=== PATIENT | female | born 1990 | race Caucasian/White ===

== ENCOUNTER 2016-10-11 14:43 | Outpatient (CLI) | payer MEDICAID ==
[2016-10-11 15:16] LABS: APPEARANCE,URINE CLEAR; BILIRUBIN,URINE NEGATIVE (NEGATIVE); GLUCOSE, URINE NEGATIVE (NEGATIVE); KETONES,URINE NEGATIVE (NEGATIVE); LEUKOCYTE ESTERASE,URINE TRACE (NEGATIVE); NITRITE,URINE NEGATIVE (NEGATIVE); PROTEIN,URINE NEGATIVE (NEGATIVE); URINE SPECIFIC GRAVITY 1.001; UROBILINOGEN,URINE NEGATIVE mg/dL (<2.0)
[2016-10-11 15:19] LABS: ABSOLUTE BASOPHILS # (AUTO) 0.1 10^3/uL (0.0-0.2); ABSOLUTE EOSINOPHILS # (AUTO) 0.1 10^3/uL (0.0-0.6); ABSOLUTE MONOCYTES (AUTO) 0.9 10^3/uL (0.1-1.4); ABSOLUTE NEUT (AUTO) 9.6 10^3/uL (1.7-8.2); BASOPHILS % (AUTO) 0.4 % (0-2); EOSINOPHILS % (AUTO) 0.8 % (0-6); HEMATOCRIT 37.2 % (36.0-47.0); HEMOGLOBIN 12.8 g/dL (12.0-15.5); HGB HCT DIFFERENCE 1.2; LYMPHOCYTES % (AUTO) 15.5 % (13-45); MEAN CORPUSCULAR HEMOGLOBIN 31.3 pg (27.0-33.4); MEAN CORPUSCULAR HGB CONC 34.3 g/dL (32.0-36.0); MEAN CORPUSCULAR VOLUME 91 fl (80-97); MONOCYTES % (AUTO) 7.2 % (3-13); RED BLOOD COUNT 4.08 10^6/uL (3.72-5.28); RED CELL DISTRIBUTION WIDTH 12.1 % (11.5-14.0); SEGMENTED NEUTROPHILS % (AUTO) 76.1 % (42-78); WHITE BLOOD COUNT 12.6 10^3/uL (4.0-10.5)
[2016-10-11 15:33] LABS: ALANINE AMINOTRANSFERASE 22 U/L (9-52); ALBUMIN 3.6 g/dL (3.5-5.0); ALKALINE PHOSPHATASE 140 U/L (38-126); ANION GAP 8 (5-19); ASPARTATE AMINO TRANSFERASE 21 U/L (14-36); BILIRUBIN,DIRECT 0.3 mg/dL (0.0-0.4); BILIRUBIN,TOTAL 0.4 mg/dL (0.2-1.3); BLOOD UREA NITROGEN 7 mg/dL (7-20); CARBON DIOXIDE 20 mmol/L (22-30); CHLORIDE 105 mmol/L (98-107); CREATININE RESULT 0.58 mg/dL (0.52-1.25); GLUCOSE 86 mg/dL (75-110); LDH 353 U/L (313-618); POTASSIUM 4.2 mmol/L (3.6-5.0); SODIUM 133.2 mmol/L (137-145); TOTAL PROTEIN 6.7 g/dL (6.3-8.2); URIC ACID 5.2 mg/dL (2.5-6.2)
[2016-10-11 15:35] LABS: URINE BARBITURATES SCREEN NEGATIVE; URINE METHADONE SCREEN NEGATIVE
[2016-10-11 15:39] LABS: URINE CREATININE 15.6 mg/dL (16-327); URINE PROTEIN 15.4 mg/dL (<12)
[2016-10-11 15:45] LABS: URINE OPIATES LOW NEGATIVE
[2016-10-11 15:46] LABS: URINE PHENCYCLIDINE SCREEN NEGATIVE
== END 2016-10-11 16:16 | disposition home or self-care (01) ==
LOC: LC 14:43
PROVIDERS: ATTEND Specialist
PROC: 4A1HXCZ Monitoring of Products of Conception, Cardiac Rate, External Approach (ICD-10-PCS; principal; 2016-10-11)
DX: O13.3 Gestational [pregnancy-induced] hypertension without significant proteinuria, third trimester (principal); Z3A.29 29 weeks gestation of pregnancy
CPT/HCPCS: 36415; 80053; 80307; 81001; 82570; 83615; 84156; 84550; 85025

== ENCOUNTER 2016-10-13 11:10 | Observation (INO) | payer MEDICAID ==
[2016-10-13] MEDS ORDERED: HYDRALAZINE HCL INJ/PF 20 MG/1 ML SDV ONE (11:54)
[2016-10-13 12:04] LABS: URINE BARBITURATES SCREEN NEGATIVE; URINE METHADONE SCREEN NEGATIVE; URINE OPIATES LOW NEGATIVE; URINE PHENCYCLIDINE SCREEN NEGATIVE
[2016-10-13 12:07] LABS: ABSOLUTE EOSINOPHILS # (AUTO) 0.1 10^3/uL (0.0-0.6); ABSOLUTE LYMPHOCYTES (AUTO) 2.5 10^3/uL (0.5-4.7); ABSOLUTE MONOCYTES (AUTO) 1.1 10^3/uL (0.1-1.4); ABSOLUTE NEUT (AUTO) 7.3 10^3/uL (1.7-8.2); BASOPHILS % (AUTO) 0.2 % (0-2); EOSINOPHILS % (AUTO) 1.2 % (0-6); HEMATOCRIT 34.9 % (36.0-47.0); HEMOGLOBIN 12.1 g/dL (12.0-15.5); HGB HCT DIFFERENCE 1.4; LYMPHOCYTES % (AUTO) 22.6 % (13-45); MEAN CORPUSCULAR HGB CONC 34.6 g/dL (32.0-36.0); MEAN CORPUSCULAR VOLUME 90 fl (80-97); MONOCYTES % (AUTO) 9.6 % (3-13); RED CELL DISTRIBUTION WIDTH 12.4 % (11.5-14.0); SEGMENTED NEUTROPHILS % (AUTO) 66.4 % (42-78); WHITE BLOOD COUNT 11.1 10^3/uL (4.0-10.5)
[2016-10-13 12:08] LABS: URINE CREATININE 24.2 mg/dL (16-327); URINE PROTEIN 14.1 mg/dL (<12)
[2016-10-13 12:20] LABS: APPEARANCE,URINE CLEAR; BILIRUBIN,URINE NEGATIVE (NEGATIVE); GLUCOSE, URINE NEGATIVE (NEGATIVE); KETONES,URINE NEGATIVE (NEGATIVE); URINE SPECIFIC GRAVITY 1.003
[2016-10-13 12:21] LABS: LEUKOCYTE ESTERASE,URINE TRACE (NEGATIVE); NITRITE,URINE NEGATIVE (NEGATIVE); PROTEIN,URINE NEGATIVE (NEGATIVE); UROBILINOGEN,URINE NEGATIVE mg/dL (<2.0)
[2016-10-13 12:26] LABS: ALANINE AMINOTRANSFERASE 23 U/L (9-52); ALBUMIN 3.4 g/dL (3.5-5.0); ALKALINE PHOSPHATASE 117 U/L (38-126); ANION GAP 7 (5-19); ASPARTATE AMINO TRANSFERASE 18 U/L (14-36); BILIRUBIN,DIRECT 0.2 mg/dL (0.0-0.4); BILIRUBIN,TOTAL 0.3 mg/dL (0.2-1.3); BLOOD UREA NITROGEN 8 mg/dL (7-20); CALCIUM 9.1 mg/dL (8.4-10.2); CARBON DIOXIDE 20 mmol/L (22-30); CHLORIDE 108 mmol/L (98-107); CREATININE RESULT 0.62 mg/dL (0.52-1.25); GLUCOSE 75 mg/dL (75-110); LDH 349 U/L (313-618); POTASSIUM 4.2 mmol/L (3.6-5.0); SODIUM 135.4 mmol/L (137-145); TOTAL PROTEIN 6.2 g/dL (6.3-8.2); URIC ACID 5.7 mg/dL (2.5-6.2)
[2016-10-13 12:47] LABS: URINE PROTEIN 14.2 mg/dL (<12)
--- NOTE | 2016-10-13 12:58 | RADIOLOGY REPORT (SQ) ---
EXAM DESCRIPTION: U/S OB LIMITED COMPLETED DATE/TIME: 10/13/2016 12:47 pm REASON FOR STUDY: 30wk, severe pre-e, growth, MELE, presentation COMPARISON: None. TECHNIQUE: Limited transabdominal grayscale ultrasound for evaluation of specific requested obstetri didier parameters. LIMITATIONS: None. FINDINGS: CERVICAL LENGTH: Not seen. MELE: 20.7 cm. FHR: 157 beats per minute. PRESENTATION: Cephalic. OTHER: Estimated body weight 1478 g +/-2 1 9 g.. Live intrauterine gestation of 30 weeks 1 day . Estimated date of delivery at 12/21/2016 IMPRESSION: Live intrauterine gestational 30 weeks 1 day with an estimated date of delivery at at . Findings as described. Trimester of : Third trimester - 28 weeks to delivery. TECHNICAL DOCUMENTATION: JOB ID: [id number] [employer]- All Rights Reserved
[2016-10-13] MEDS ORDERED: BETAMET ACET/BETAMET NA INJ 6 MG/1 ML ONE (13:28)
[2016-10-13 17:54] LABS: AMNISURE (ROM) NEGATIVE (NEGATIVE)
[2016-10-13] MEDS ORDERED: NIFEDIPINE 30 MG TAB.ER.24 PO ONE (20:00)
[2016-10-13] MEDS ORDERED: BETAMET ACET/BETAMET NA INJ 6 MG/1 ML IM ONE (23:45)
[2016-10-13] MEDS ORDERED: ACETAMINOPHEN 325 MG TABLET PO PRN (23:47)
[2016-10-14 06:24] LABS: HEMATOCRIT 36.1 % (36.0-47.0); HEMOGLOBIN 12.4 g/dL (12.0-15.5); HGB HCT DIFFERENCE 1.1; MEAN CORPUSCULAR HGB CONC 34.3 g/dL (32.0-36.0); MEAN CORPUSCULAR VOLUME 90 fl (80-97); RED CELL DISTRIBUTION WIDTH 12.6 % (11.5-14.0); WHITE BLOOD COUNT 13.3 10^3/uL (4.0-10.5)
[2016-10-14 06:38] LABS: ALANINE AMINOTRANSFERASE 20 U/L (9-52); ALBUMIN 3.5 g/dL (3.5-5.0); ALKALINE PHOSPHATASE 119 U/L (38-126); ANION GAP 7 (5-19); ASPARTATE AMINO TRANSFERASE 18 U/L (14-36); BILIRUBIN,DIRECT 0.3 mg/dL (0.0-0.4); BILIRUBIN,TOTAL 0.3 mg/dL (0.2-1.3); BLOOD UREA NITROGEN 13 mg/dL (7-20); CALCIUM 9.6 mg/dL (8.4-10.2); CARBON DIOXIDE 24 mmol/L (22-30); CHLORIDE 105 mmol/L (98-107); CREATININE RESULT 0.53 mg/dL (0.52-1.25); GLUCOSE 114 mg/dL (75-110); LDH 346 U/L (313-618); POTASSIUM 4.6 mmol/L (3.6-5.0); SODIUM 136.4 mmol/L (137-145); TOTAL PROTEIN 6.5 g/dL (6.3-8.2); URIC ACID 4.5 mg/dL (2.5-6.2)
[2016-10-14] MEDS ORDERED: BUTALB/ACETAMINOPHEN/CAFFEINE 1 TAB EACH PO ONE (09:15)
[2016-10-14] MEDS: NIFEDIPINE 30 MG TAB.ER.24 PO SCH (09:44)
--- NOTE | 2016-10-14 10:47 | PDOC PROGRESS REPORT ---
Subjective Progress Note for:: 10/14/16 Subjective:: patient having some intermittent headaches that are able to be resolved with tylenol or fiorocet. No other symptoms. good FM. Physical Exam - Physical Exam Vital Signs: Temp Pulse Resp BP Pulse Ox 98 F 96 16 120/75 99 10/14/16 08:00 10/14/16 09:30 10/14/16 08:00 10/14/16 09:30 10/14/16 08:00 Intake & Output 10/13/16 10/14/16 10/15/16 06:59 06:59 06:59 Weight 66.95 kg General appearance: PRESENT: no acute distress Head exam: PRESENT: atraumatic Pulses: PRESENT: normal radial pulses Vascular exam: PRESENT: normal capillary refill GI/Abdominal exam: PRESENT: soft - gravid, nontender, appropriate for gestational age Extremities exam: PRESENT: full ROM Musculoskeletal exam: PRESENT: ambulatory Neurological exam: PRESENT: alert, oriented to person, oriented to place, oriented to time Result Laboratory Results: 10/14/16 06:12 10/14/16 06:12 10/12/16 10/13/16 10/13/16 08:00 11:18 11:46 WBC 11.1 H RBC 3.90 Hgb 12.1 Hct 34.9 L MCV 90 MCH 31.0 MCHC 34.6 RDW 12.4 Plt Count 186 Seg Neutrophils % 66.4 Lymphocytes % 22.6 Monocytes % 9.6 Eosinophils % 1.2 Basophils % 0.2 Absolute Neutrophils 7.3 Absolute Lymphocytes 2.5 Absolute Monocytes 1.1 Absolute Eosinophils 0.1 Absolute Basophils 0.0 Sodium Potassium Chloride Carbon Dioxide Anion Gap BUN Creatinine Est GFR ( Amer) Est GFR (Non-Af Amer) Glucose Uric Acid Calcium Total Bilirubin AST ALT Alkaline Phosphatase Total Protein Albumin Urine Color COLORLESS Urine Appearance CLEAR Urine pH 7.0 Ur Specific [place] 1.003 Urine Protein NEGATIVE Urine Glucose (UA) NEGATIVE Urine Ketones NEGATIVE Urine Blood NEGATIVE Urine Nitrite NEGATIVE Ur Leukocyte Esterase TRACE H Urine WBC (Auto) 1-5 Urine RBC (Auto) 1-5 Ur 24 Hour Volume 2650 Ur Total Protein 24 Hr 376 H 10/13/16 10/14/16 10/14/16 11:46 06:12 06:12 WBC 13.3 H RBC 4.00 Hgb 12.4 Hct 36.1 MCV 90 MCH 31.0 MCHC 34.3 RDW 12.6 Plt Count 169 Seg Neutrophils % Lymphocytes % Monocytes % Eosinophils % Basophils % Absolute Neutrophils Absolute Lymphocytes Absolute Monocytes Absolute Eosinophils Absolute Basophils Sodium 135.4 L 136.4 L Potassium 4.2 4.6 Chloride 108 H 105 Carbon Dioxide 20 L 24 Anion Gap 7 7 BUN 8 13 Creatinine 0.62 0.53 Est GFR ( Amer) > 60 > 60 Est GFR (Non-Af Amer) > 60 > 60 Glucose 75 114 H Uric Acid 5.7 4.5 Calcium 9.1 9.6 Total Bilirubin 0.3 0.3 AST 18 18 ALT 23 20 Alkaline Phosphatase 117 119 Total Protein 6.2 L 6.5 Albumin 3.4 L 3.5 Urine Color Urine Appearance Urine pH Ur Specific [place] Urine Protein Urine Glucose (UA) Urine Ketones Urine Blood Urine Nitrite Ur Leukocyte Esterase Urine WBC (Auto) Urine RBC (Auto) Ur 24 Hour Volume Ur Total Protein 24 Hr Impressions: Obstetrics Ultrasound 10/13/16 11:52 IMPRESSION: Live intrauterine gestational 30 weeks 1 day with an estimated date of delivery at at 12/21/2016. Findings as described. Trimester of : Third trimester - 28 weeks to delivery. Assessment & Plan - Diagnosis (1) Pre-eclampsia Qualifiers: Trimester: third trimester Qualified Code(s): O14.93 - Unspecified pre-eclampsia, third trimester Is this a current diagnosis for this admission?: Yes (2) Qualifiers: Weeks of gestation: 30 weeks Qualified Code(s): Z3A.30 - 30 weeks gestation of Is this a current diagnosis for this admission?: Yes - Inpatient Certification Based on my medical assessment, after consideration of the patient's comorbidities, presenting symptoms, or acuity I expect that the services needed warrant INPATIENT care.: Yes I certify that my determination is in accordance with my understanding of Medicare's requirements for reasonable and necessary INPATIENT services [42 CFR 412.3e].: Yes Medical Necessity: Need Close Monitoring Due to Risk of Patient Decompensation - 24 hour urine and ACS protocol to be completed today. If remains stable may consider discharge with close outpatient follow up to get patient as close to 37 weeks of gestation and delivery at that time. However, risks of patient decompensation at this early gestational age is significant which could necessitate early delivery. Close observation warranted.
[2016-10-14] MEDS ORDERED: BETAMET ACET/BETAMET NA INJ 6 MG/1 ML IM ONE (13:30)
[2016-10-14] MEDS ORDERED: BUTALB/ACETAMINOPHEN/CAFFEINE 1 TAB EACH PO PRN (17:45)
[2016-10-14] MEDS ORDERED: MAG HYDROX/AL HYDROX/SIMETH SUSP 30 ML UDCUP PO PRN (22:52)
[2016-10-15 02:49] LABS: URINE PROTEIN 11.6 mg/dL (<12)
[2016-10-15 03:08] LABS: URINE CREATININE 41.3 mg/dL (16-327); URINE CREATININE 42.1 mg/dL (16-327); URINE PROTEIN 11.6 mg/dL (<12)
[2016-10-15 06:25] LABS: HEMATOCRIT 33.1 % (36.0-47.0); HEMOGLOBIN 11.3 g/dL (12.0-15.5); HGB HCT DIFFERENCE 0.8; MEAN CORPUSCULAR HEMOGLOBIN 30.8 pg (27.0-33.4); MEAN CORPUSCULAR HGB CONC 34.2 g/dL (32.0-36.0); MEAN CORPUSCULAR VOLUME 90 fl (80-97); RED BLOOD COUNT 3.67 10^6/uL (3.72-5.28); RED CELL DISTRIBUTION WIDTH 12.5 % (11.5-14.0); WHITE BLOOD COUNT 15.8 10^3/uL (4.0-10.5)
[2016-10-15 06:47] LABS: ALANINE AMINOTRANSFERASE 20 U/L (9-52); ALBUMIN 3.1 g/dL (3.5-5.0); ALKALINE PHOSPHATASE 109 U/L (38-126); ANION GAP 8 (5-19); ASPARTATE AMINO TRANSFERASE 16 U/L (14-36); BILIRUBIN,DIRECT 0.3 mg/dL (0.0-0.4); BILIRUBIN,TOTAL 0.3 mg/dL (0.2-1.3); BLOOD UREA NITROGEN 11 mg/dL (7-20); CALCIUM 8.9 mg/dL (8.4-10.2); CARBON DIOXIDE 19 mmol/L (22-30); CHLORIDE 109 mmol/L (98-107); CREATININE RESULT 0.54 mg/dL (0.52-1.25); GLUCOSE 102 mg/dL (75-110); LDH 332 U/L (313-618); POTASSIUM 4.5 mmol/L (3.6-5.0); SODIUM 135.9 mmol/L (137-145); TOTAL PROTEIN 5.9 g/dL (6.3-8.2); URIC ACID 4.5 mg/dL (2.5-6.2)
[2016-10-15] MEDS: NIFEDIPINE 30 MG TAB.ER.24 PO SCH (09:18)
[2016-10-15 10:49] VITALS: BP 130/82
--- NOTE | 2016-10-15 10:53 | PDOC PROGRESS REPORT ---
Subjective Progress Note for:: 10/15/16 Subjective:: Denies UNDERWOOD/blurry vision, RUQ pain. Doing well. mild heartburn o/w doing well. Physical Exam - Physical Exam Vital Signs: Temp Pulse Resp BP Pulse Ox 98.0 F 70 16 130/82 H 98 10/15/16 10:44 10/15/16 10:44 10/15/16 10:44 10/15/16 10:44 10/15/16 10:44 Intake & Output 10/14/16 10/15/16 10/16/16 06:59 06:59 06:59 Intake Total 3361 Output Total 6200 Balance -2839 Weight 66.95 kg General appearance: PRESENT: no acute distress, well-developed, well-nourished Head exam: PRESENT: atraumatic, normocephalic Cardiovascular exam: PRESENT: RRR. ABSENT: diastolic murmur, rubs, systolic murmur Pulses: PRESENT: normal dorsalis pedis pul, +2 pedal pulses bilateral Vascular exam: PRESENT: normal capillary refill GI/Abdominal exam: PRESENT: normal bowel sounds, soft. ABSENT: distended, guarding, mass, organolmegaly, rebound, tenderness Rectal exam: PRESENT: deferred Extremities exam: PRESENT: full ROM. ABSENT: calf tenderness, clubbing, pedal edema Neurological exam: PRESENT: alert, awake, oriented to person, oriented to place , oriented to time, oriented to situation, CN II-XII grossly intact. ABSENT: motor sensory deficit Psychiatric exam: PRESENT: appropriate affect, normal mood. ABSENT: homicidal ideation, suicidal ideation Skin exam: PRESENT: dry, intact, warm. ABSENT: cyanosis, rash Result Laboratory Results: 10/15/16 06:13 10/15/16 06:13 10/15/16 10/15/16 10/15/16 00:30 00:30 06:13 WBC 15.8 H RBC 3.67 L Hgb 11.3 L Hct 33.1 L MCV 90 MCH 30.8 MCHC 34.2 RDW 12.5 Plt Count 155 Sodium Potassium Chloride Carbon Dioxide Anion Gap BUN Creatinine Est GFR ( Amer) Est GFR (Non-Af Amer) Glucose Uric Acid Calcium Total Bilirubin AST ALT Alkaline Phosphatase Total Protein Albumin Ur 24 Hour Volume 5650 5650 Ur Total Protein 24 Hr 655 H 10/15/16 06:13 WBC RBC Hgb Hct MCV MCH MCHC RDW Plt Count Sodium 135.9 L Potassium 4.5 Chloride 109 H Carbon Dioxide 19 L Anion Gap 8 BUN 11 Creatinine 0.54 Est GFR ( Amer) > 60 Est GFR (Non-Af Amer) > 60 Glucose 102 Uric Acid 4.5 Calcium 8.9 Total Bilirubin 0.3 AST 16 ALT 20 Alkaline Phosphatase 109 Total Protein 5.9 L Albumin 3.1 L Ur 24 Hour Volume Ur Total Protein 24 Hr Impressions: Obstetrics Ultrasound 10/13/16 11:52 IMPRESSION: Live intrauterine gestational 30 weeks 1 day with an estimated date of delivery at at 12/21/2016. Findings as described. Trimester of : Third trimester - 28 weeks to delivery. Status: Imported from PACS Assessment & Plan - Diagnosis (1) Pre-eclampsia Qualifiers: Trimester: third trimester Qualified Code(s): O14.93 - Unspecified pre-eclampsia, third trimester Is this a current diagnosis for this admission?: YesPlan: 24 hr UTP c/w PreE. Asymptomatic. Reviewed PreE precautions and need for f/u in office tomorrow. Plan for appt tomorrow and then CNM JOSE to place consult for pt to see MFM in office. Will continue procardia. Fioricet helped with UNDERWOOD last pm. Steroid complete. - Time Time Spent with patient: 15-24 minutes Critical Time spent with patient: Less than 15 minutes Medications reviewed and adjusted accordingly: Yes Anticipated discharge: Home Within: within 24 hours - Inpatient Certification Based on my medical assessment, after consideration of the patient's comorbidities, presenting symptoms, or acuity I expect that the services needed warrant INPATIENT care.: No I certify that my determination is in accordance with my understanding of Medicare's requirements for reasonable and necessary INPATIENT services [42 CFR 412.3e].: No
--- NOTE | 2016-10-15 10:57 | PDOC DISCHARGE SUMMARY ---
General - Admit/Disc Date/PCP Admission Date/Primary Care Provider: 10/13/16 13:30 NICOLE GRAMAJO MD Discharge Date: 10/13/16 - Discharge Diagnosis (1) Pre-eclampsia Is this a current diagnosis for this admission?: YesSummary: ELevated BPs stable on procardia. 24 hr UTP dx of PreE. Pt with h/o preE. Asymptomatic and stable for discharge with close outpatient f/u. NST this am reassuring for ega - Additional Information Discharge Diet: Regular Discharge Activity: Activity As Tolerated, Pelvic Rest Home Medications: Pnv No.122/Iron/Folic Acid [ Multi Tablet] 1 each PO DAILY 12/30/14 Albuterol Sulfate [Proair Respiclick] 1 puff IN PRN PRN 10/11/16 Montelukast Sodium [Singulair] 10 mg PO PRN PRN 10/11/16 History of Present Illness Patient complains of: 26yo admitted for 24 hr UTP due to discrepancy b/w P:C ratio and returned 24 hr UTP. UNDERWOOD on admission resolved. D/w LW MFM at [facility] and will follow pt as outpatient if patient stays without severe features and need for delivery. History of Present Illness: BAKARI TOMAS is a 26 year old female Hospital Course Hospital Course: Admitted for observation and 24 hr UTP done. Steroid complete. 24hr UTP greater than 600mg. BPs stable on Procardia. Ok to discharge home. Physical Exam - Physical Exam Vital Signs: Temp Pulse Resp BP Pulse Ox 98.0 F 70 16 130/82 H 98 10/15/16 10:44 10/15/16 10:44 10/15/16 10:44 10/15/16 10:44 10/15/16 10:44 Intake & Output 10/14/16 10/15/16 10/16/16 06:59 06:59 06:59 Intake Total 3361 Output Total 6200 Balance -2839 Weight 66.95 kg General appearance: PRESENT: no acute distress, well-developed, well-nourished Head exam: PRESENT: atraumatic, normocephalic Teeth exam: PRESENT: poor dentation Neck exam: PRESENT: full ROM. ABSENT: carotid bruit, JVD, lymphadenopathy, thyromegaly Respiratory exam: PRESENT: clear to auscultation darlene, symmetrical, unlabored Cardiovascular exam: PRESENT: RRR. ABSENT: diastolic murmur, rubs, systolic murmur Pulses: PRESENT: normal dorsalis pedis pul, +2 pedal pulses bilateral Vascular exam: PRESENT: normal capillary refill GI/Abdominal exam: PRESENT: normal bowel sounds, soft. ABSENT: distended, guarding, mass, organolmegaly, rebound, tenderness Rectal exam: PRESENT: deferred Extremities exam: PRESENT: full ROM. ABSENT: calf tenderness, clubbing, pedal edema Neurological exam: PRESENT: alert, awake, oriented to person, oriented to place , oriented to time, oriented to situation, CN II-XII grossly intact. ABSENT: motor sensory deficit Psychiatric exam: PRESENT: appropriate affect, normal mood. ABSENT: homicidal ideation, suicidal ideation Skin exam: PRESENT: dry, intact, warm. ABSENT: cyanosis, rash Result Laboratory Results: 10/15/16 06:13 10/15/16 06:13 10/15/16 10/15/16 10/15/16 00:30 00:30 06:13 WBC 15.8 H RBC 3.67 L Hgb 11.3 L Hct 33.1 L MCV 90 MCH 30.8 MCHC 34.2 RDW 12.5 Plt Count 155 Sodium Potassium Chloride Carbon Dioxide Anion Gap BUN Creatinine Est GFR ( Amer) Est GFR (Non-Af Amer) Glucose Uric Acid Calcium Total Bilirubin AST ALT Alkaline Phosphatase Total Protein Albumin Ur 24 Hour Volume 5650 5650 Ur Total Protein 24 Hr 655 H 10/15/16 06:13 WBC RBC Hgb Hct MCV MCH MCHC RDW Plt Count Sodium 135.9 L Potassium 4.5 Chloride 109 H Carbon Dioxide 19 L Anion Gap 8 BUN 11 Creatinine 0.54 Est GFR ( Amer) > 60 Est GFR (Non-Af Amer) > 60 Glucose 102 Uric Acid 4.5 Calcium 8.9 Total Bilirubin 0.3 AST 16 ALT 20 Alkaline Phosphatase 109 Total Protein 5.9 L Albumin 3.1 L Ur 24 Hour Volume Ur Total Protein 24 Hr Impressions: Obstetrics Ultrasound 10/13/16 11:52 IMPRESSION: Live intrauterine gestational 30 weeks 1 day with an estimated date of delivery at at 12/21/2016. Findings as described. Trimester of : Third trimester - 28 weeks to delivery. Status: Imported from PACS Plan Discharge Plan: Discharge to home with close f/u in office as outpatient. Time Spent: Less than 30 Minutes
== END 2016-10-15 11:35 | disposition home or self-care (01) ==
LOC: LC 11:10 → LR 13:30 → 2S 21:18
PROVIDERS: ADMIT Student in an Organized Health Care Education/Training Program; ATTEND Student in an Organized Health Care Education/Training Program
PROC: 4A0HXCZ Measurement of Products of Conception, Cardiac Rate, External Approach (ICD-10-PCS; principal; 2016-10-14)
PROC: 4A0HXCZ Measurement of Products of Conception, Cardiac Rate, External Approach (ICD-10-PCS; 2016-10-15)
DX: O14.13 Severe pre-eclampsia, third trimester (principal); O99.613 Diseases of the digestive system complicating pregnancy, third trimester; R12 Heartburn; Z3A.30 30 weeks gestation of pregnancy
CPT/HCPCS: 59025 ×2; 96372; 84112; 36415 ×3; 82570 ×3; 83615 ×3; 84156 ×2; 84550 ×3; 85025; 85027 ×2; 80053 ×3; 81001; 80307; 76815; G0378 ×3; G0379; J3490 ×5; J0360; J0702

== ENCOUNTER 2016-10-16 10:52 | Outpatient (CLI) | payer MEDICAID ==
[2016-10-16 11:47] LABS: APPEARANCE,URINE CLEAR; BILIRUBIN,URINE NEGATIVE (NEGATIVE); GLUCOSE, URINE NEGATIVE (NEGATIVE); KETONES,URINE NEGATIVE (NEGATIVE); LEUKOCYTE ESTERASE,URINE NEGATIVE (NEGATIVE); NITRITE,URINE NEGATIVE (NEGATIVE); PROTEIN,URINE NEGATIVE (NEGATIVE); URINE SPECIFIC GRAVITY 1.008; UROBILINOGEN,URINE NEGATIVE mg/dL (<2.0)
[2016-10-16 11:53] LABS: ABSOLUTE BASOPHILS # (AUTO) 0.1 10^3/uL (0.0-0.2); ABSOLUTE LYMPHOCYTES (AUTO) 2.4 10^3/uL (0.5-4.7); ABSOLUTE MONOCYTES (AUTO) 1.2 10^3/uL (0.1-1.4); ABSOLUTE NEUT (AUTO) 8.1 10^3/uL (1.7-8.2); BASOPHILS % (AUTO) 0.5 % (0-2); EOSINOPHILS % (AUTO) 0.4 % (0-6); HEMATOCRIT 33.7 % (36.0-47.0); HEMOGLOBIN 11.6 g/dL (12.0-15.5); HGB HCT DIFFERENCE 1.1; LYMPHOCYTES % (AUTO) 20.1 % (13-45); MEAN CORPUSCULAR HEMOGLOBIN 31.4 pg (27.0-33.4); MEAN CORPUSCULAR HGB CONC 34.3 g/dL (32.0-36.0); MEAN CORPUSCULAR VOLUME 92 fl (80-97); MONOCYTES % (AUTO) 10.5 % (3-13); RED BLOOD COUNT 3.68 10^6/uL (3.72-5.28); RED CELL DISTRIBUTION WIDTH 12.6 % (11.5-14.0); SEGMENTED NEUTROPHILS % (AUTO) 68.5 % (42-78); WHITE BLOOD COUNT 11.8 10^3/uL (4.0-10.5)
[2016-10-16 12:06] LABS: ALANINE AMINOTRANSFERASE 23 U/L (9-52); ALBUMIN 3.4 g/dL (3.5-5.0); ALKALINE PHOSPHATASE 111 U/L (38-126); ANION GAP 9 (5-19); ASPARTATE AMINO TRANSFERASE 16 U/L (14-36); BILIRUBIN,DIRECT 0.3 mg/dL (0.0-0.4); BILIRUBIN,TOTAL 0.3 mg/dL (0.2-1.3); BLOOD UREA NITROGEN 13 mg/dL (7-20); CARBON DIOXIDE 21 mmol/L (22-30); CHLORIDE 106 mmol/L (98-107); CREATININE RESULT 0.61 mg/dL (0.52-1.25); GLUCOSE 99 mg/dL (75-110); LDH 306 U/L (313-618); POTASSIUM 3.8 mmol/L (3.6-5.0); SODIUM 135.7 mmol/L (137-145); TOTAL PROTEIN 6.3 g/dL (6.3-8.2); URIC ACID 4.6 mg/dL (2.5-6.2)
[2016-10-16 12:07] LABS: URINE CREATININE 51.5 mg/dL (16-327); URINE PROTEIN 14.7 mg/dL (<12)
[2016-10-16 12:10] LABS: URINE METHADONE SCREEN NEGATIVE; URINE OPIATES LOW NEGATIVE; URINE PHENCYCLIDINE SCREEN NEGATIVE
[2016-10-16 12:17] LABS: URINE BARBITURATES SCREEN UNCONFIRMED POSITIVE
== END 2016-10-16 12:32 | disposition home or self-care (01) ==
LOC: LC 10:52
PROVIDERS: ATTEND Specialist
DX: O14.03 Mild to moderate pre-eclampsia, third trimester (principal); Z3A.30 30 weeks gestation of pregnancy
CPT/HCPCS: 36415; 80053; 80307; 81001; 82570; 83615; 84156; 84550; 85025

== ENCOUNTER 2016-11-06 16:21 | Outpatient (CLI) | payer MEDICAID ==
[2016-11-06 17:19] LABS: ABSOLUTE BASOPHILS # (AUTO) 0.1 10^3/uL (0.0-0.2); ABSOLUTE EOSINOPHILS # (AUTO) 0.1 10^3/uL (0.0-0.6); ABSOLUTE LYMPHOCYTES (AUTO) 2.2 10^3/uL (0.5-4.7); ABSOLUTE MONOCYTES (AUTO) 0.9 10^3/uL (0.1-1.4); ABSOLUTE NEUT (AUTO) 10.7 10^3/uL (1.7-8.2); BASOPHILS % (AUTO) 0.5 % (0-2); HEMATOCRIT 38.1 % (36.0-47.0); HEMOGLOBIN 12.9 g/dL (12.0-15.5); HGB HCT DIFFERENCE 0.6; LYMPHOCYTES % (AUTO) 15.4 % (13-45); MEAN CORPUSCULAR HEMOGLOBIN 30.7 pg (27.0-33.4); MEAN CORPUSCULAR HGB CONC 33.8 g/dL (32.0-36.0); MEAN CORPUSCULAR VOLUME 91 fl (80-97); MONOCYTES % (AUTO) 6.5 % (3-13); RED BLOOD COUNT 4.18 10^6/uL (3.72-5.28); RED CELL DISTRIBUTION WIDTH 13.9 % (11.5-14.0); SEGMENTED NEUTROPHILS % (AUTO) 76.6 % (42-78)
[2016-11-06 17:22] LABS: APPEARANCE,URINE CLEAR; BILIRUBIN,URINE NEGATIVE (NEGATIVE); GLUCOSE, URINE NEGATIVE (NEGATIVE); KETONES,URINE NEGATIVE (NEGATIVE); LEUKOCYTE ESTERASE,URINE NEGATIVE (NEGATIVE); NITRITE,URINE NEGATIVE (NEGATIVE); PROTEIN,URINE NEGATIVE (NEGATIVE); URINE SPECIFIC GRAVITY 1.002; UROBILINOGEN,URINE NEGATIVE mg/dL (<2.0)
[2016-11-06 17:34] LABS: ALANINE AMINOTRANSFERASE 22 U/L (9-52); ALBUMIN 3.7 g/dL (3.5-5.0); ALKALINE PHOSPHATASE 198 U/L (38-126); ANION GAP 7 (5-19); ASPARTATE AMINO TRANSFERASE 19 U/L (14-36); BILIRUBIN,DIRECT 0.3 mg/dL (0.0-0.4); BILIRUBIN,TOTAL 0.4 mg/dL (0.2-1.3); BLOOD UREA NITROGEN 16 mg/dL (7-20); CALCIUM 9.8 mg/dL (8.4-10.2); CARBON DIOXIDE 22 mmol/L (22-30); CHLORIDE 105 mmol/L (98-107); CREATININE RESULT 0.63 mg/dL (0.52-1.25); GLUCOSE 72 mg/dL (75-110); LDH 443 U/L (313-618); POTASSIUM 4.2 mmol/L (3.6-5.0); SODIUM 134.1 mmol/L (137-145); TOTAL PROTEIN 6.6 g/dL (6.3-8.2)
[2016-11-06 17:37] LABS: URINE METHADONE SCREEN NEGATIVE; URINE OPIATES LOW NEGATIVE; URINE PHENCYCLIDINE SCREEN NEGATIVE
[2016-11-06 18:03] LABS: URINE CREATININE 15.6 mg/dL (16-327); URINE PROTEIN 19.2 mg/dL (<12)
[2016-11-06 18:18] LABS: URINE BARBITURATES SCREEN UNCONFIRMED POSITIVE
== END 2016-11-06 20:05 | disposition left against medical advice (07) ==
LOC: LC 16:21 → LR 18:43 → UNDOADMIN 18:43 → UNDODISIN 20:05 → LC 20:05
PROVIDERS: ATTEND Obstetrics & Gynecology
PROC: 4A1HXCZ Monitoring of Products of Conception, Cardiac Rate, External Approach (ICD-10-PCS; principal; 2016-11-06)
DX: O47.03 False labor before 37 completed weeks of gestation, third trimester (principal); O13.3 Gestational [pregnancy-induced] hypertension without significant proteinuria, third trimester; Z3A.33 33 weeks gestation of pregnancy
CPT/HCPCS: 36415; 59025; 80053; 80307; 81001; 82570; 83615; 84156; 84550; 85025

== ENCOUNTER 2016-11-09 16:46 | Inpatient (IN) | payer MEDICAID ==
--- NOTE | 2016-11-09 16:55 | Non Stress Test Report ---
Non Stress Test Datetime Report Generated by CPN: 11/09/2016 16:54 DEMOGRAPHIC EGA NST: 33.4 INDICATION Indication for Study: Ordered by Provider MONITORING Monitor Explained: Monitor Explained; Test Explained; Patient Verbalized Understanding Time on Monitor: 11/06/2016 16:44 Time off Monitor: 11/06/2016 19:51 NST Duration: 187 NST INTERVENTIONS NST Interventions: PO Hydration; IV Fluids Physician Notified NST: Dr Valle BABY A: [id number] BABY A Contraction Frequency : rare FHR Baseline : 130 Accelerations : 15X15 Decelerations : None Variability : Moderate 6-25bpm NST Review: Meets Criteria for Reactive NST NST Review and Verified By : Aram HernandezFlakito RN NST Results: Reactive NST REPORT Report Trigger: Send Report
[2016-11-09 17:37] LABS: APPEARANCE,URINE SLIGHTLY-CLOUDY; BILIRUBIN,URINE NEGATIVE (NEGATIVE); GLUCOSE, URINE NEGATIVE (NEGATIVE); KETONES,URINE NEGATIVE (NEGATIVE); LEUKOCYTE ESTERASE,URINE LARGE (NEGATIVE); NITRITE,URINE NEGATIVE (NEGATIVE); PROTEIN,URINE 100 mg/dL (NEGATIVE); URINE SPECIFIC GRAVITY 1.011; UROBILINOGEN,URINE NEGATIVE mg/dL (<2.0)
[2016-11-09 17:50] LABS: URINE METHADONE SCREEN NEGATIVE; URINE OPIATES LOW NEGATIVE; URINE PHENCYCLIDINE SCREEN NEGATIVE
[2016-11-09 17:56] LABS: URINE BARBITURATES SCREEN UNCONFIRMED POSITIVE
[2016-11-09 18:01] LABS: URINE CREATININE 129.8 mg/dL (16-327); URINE PROTEIN 81.9 mg/dL (<12)
[2016-11-09 18:11] LABS: ABSOLUTE EOSINOPHILS # (AUTO) 0.1 10^3/uL (0.0-0.6); ABSOLUTE LYMPHOCYTES (AUTO) 1.9 10^3/uL (0.5-4.7); ABSOLUTE MONOCYTES (AUTO) 0.7 10^3/uL (0.1-1.4); ABSOLUTE NEUT (AUTO) 7.8 10^3/uL (1.7-8.2); BASOPHILS % (AUTO) 0.3 % (0-2); EOSINOPHILS % (AUTO) 0.9 % (0-6); HEMATOCRIT 38.6 % (36.0-47.0); HEMOGLOBIN 13.4 g/dL (12.0-15.5); HGB HCT DIFFERENCE 1.6; LYMPHOCYTES % (AUTO) 18.1 % (13-45); MEAN CORPUSCULAR HEMOGLOBIN 30.9 pg (27.0-33.4); MEAN CORPUSCULAR HGB CONC 34.7 g/dL (32.0-36.0); MEAN CORPUSCULAR VOLUME 89 fl (80-97); MONOCYTES % (AUTO) 6.6 % (3-13); RED BLOOD COUNT 4.34 10^6/uL (3.72-5.28); SEGMENTED NEUTROPHILS % (AUTO) 74.1 % (42-78); WHITE BLOOD COUNT 10.5 10^3/uL (4.0-10.5)
[2016-11-09 18:30] LABS: ALANINE AMINOTRANSFERASE 26 U/L (9-52); ALBUMIN 3.8 g/dL (3.5-5.0); ALKALINE PHOSPHATASE 206 U/L (38-126); ANION GAP 11 (5-19); ASPARTATE AMINO TRANSFERASE 31 U/L (14-36); BILIRUBIN,DIRECT 0.3 mg/dL (0.0-0.4); BILIRUBIN,TOTAL 0.4 mg/dL (0.2-1.3); BLOOD UREA NITROGEN 12 mg/dL (7-20); CALCIUM 9.3 mg/dL (8.4-10.2); CARBON DIOXIDE 19 mmol/L (22-30); CHLORIDE 105 mmol/L (98-107); CREATININE RESULT 0.72 mg/dL (0.52-1.25); GLUCOSE 93 mg/dL (75-110); LDH 457 U/L (313-618); POTASSIUM 4.6 mmol/L (3.6-5.0); SODIUM 135.4 mmol/L (137-145); TOTAL PROTEIN 6.7 g/dL (6.3-8.2); URIC ACID 6.5 mg/dL (2.5-6.2)
[2016-11-09] MEDS ORDERED: EPHEDRINE SULFATE INJ 50 MG/1 ML AMPULE ONE (18:35)
[2016-11-09] MEDS ORDERED: FENTANYL CITRATE INJ/PF 100 MCG/2 ML AMPUL ONE ×2 (18:35→21:10)
[2016-11-09] MEDS ORDERED: OXYTOCIN 10 UNIT/ML VIAL ONE (18:35)
[2016-11-09] MEDS ORDERED: FENTANYL CITRATE INJ/PF 250 MCG/5 ML AMPULE ONE (18:35)
[2016-11-09] MEDS ORDERED: MIDAZOLAM 2 MG/2 ML INJ ONE (18:36)
[2016-11-09] MEDS ORDERED: ONDANSETRON HCL INJ/PF 4 MG/2 ML SDV ONE (18:36)
[2016-11-09] MEDS ORDERED: OXYTOCIN/NORMAL SALINE 20 UNIT/1,000 ML RTUINJ ONE (18:36)
[2016-11-09] MEDS ORDERED: CEFAZOLIN 1 GM/D5W RTU 1 GM/50 ML RTUPB IV ONE (18:37)
[2016-11-09] MEDS ORDERED: CITRIC ACID/SODIUM CITRATE ORAL SOLN 15 ML UDCUP ONE (18:38)
[2016-11-09] MEDS ORDERED: ONDANSETRON HCL INJ/PF 4 MG/2 ML SDV IV PRN (18:43)
[2016-11-09] MEDS ORDERED: PROMETHAZINE HCL INJ 25 MG/1 ML VIAL IV PRN ×2 (18:43→20:53)
[2016-11-09] MEDS ORDERED: FENTANYL CITRATE INJ/PF 100 MCG/2 ML AMPUL IV PRN ×3 (18:43)
[2016-11-09] MEDS ORDERED: MORPHINE SULFATE 10 MG/ML INJ IV PRN ×2 (18:43→20:53)
[2016-11-09] MEDS ORDERED: MEPERIDINE HCL/PF INJ 25 MG/1 ML DISP.SYRIN IV PRN (18:43)
[2016-11-09] MEDS ORDERED: DIPHENHYDRAMINE HCL 50 MG/ML VIAL IV PRN (18:43)
[2016-11-09] MEDS ORDERED: NALBUPHINE HCL INJ 10 MG/1 ML AMPULE IM ONE (19:37)
[2016-11-09] MEDS ORDERED: NALBUPHINE HCL INJ 10 MG/1 ML AMPULE ONE (19:50)
[2016-11-09] MEDS ORDERED: DIPH/PERTUSS(ACELL)/TETANUS VAC/PF 0.5 ML SYR (>=10YO) IM PRN (20:53)
[2016-11-09] MEDS ORDERED: OXYTOCIN/NORMAL SALINE 20 UNIT/1,000 ML RTUINJ IV PRN (20:53)
[2016-11-09] MEDS ORDERED: OXYCODONE-ACETAMINOPHEN 5-325 MG TABLET PO PRN (20:53)
[2016-11-09] MEDS ORDERED: ACETAMINOPHEN 325 MG TABLET PO PRN (20:53)
[2016-11-09] MEDS ORDERED: MEASLES,MUMPS&RUBELLA VACC/PF 0.5 ML VIAL SUBCUT PRN (20:53)
[2016-11-09] MEDS ORDERED: SIMETHICONE 80 MG TAB.CHEW PO PRN (20:53)
[2016-11-09] MEDS ORDERED: DIPHENHYDRAMINE HCL 50 MG/ML VIAL ONE (21:06)
[2016-11-09] MEDS ORDERED: ACETAMINOPHEN 100 ML IV ONE ×2 (21:15→21:20)
[2016-11-09] MEDS ORDERED: MAGNESIUM SULFATE 4 GM/100 ML RTUPB IV ONE ×2 (21:18→21:31)
[2016-11-09] MEDS: MAGNESIUM SULFATE 20 GM/500 ML RTUINJ IV PRN (22:03)
[2016-11-09] MEDS ORDERED: MORPHINE SULFATE 10 MG/ML INJ ONE (22:30)
[2016-11-09] MEDS ORDERED: KETOROLAC TROMETHAMINE INJ/PF 30 MG/1 ML SDV ONE (22:41)
[2016-11-09] MEDS: KETOROLAC TROMETHAMINE INJ/PF 30 MG/1 ML SDV IV SCH (22:41)
--- NOTE | 2016-11-09 23:44 | Delivery Summary ---
Del Sum A-C Datetime Report Generated by CPN: 11/09/2016 23:44 DELIVERY PERSONNEL DELIVERY PERSONNEL: [id number] Delivery Doctor:: Gely Bain MD Anesthesiologist:: Beverly Monte MD WOOL SAMPLER:: Jason Armas CRNA Labor and Delivery Nurse:: Irma Goldberg RN Neonatal Nurse Practitioner:: JONATHAN Segundo Nursery Nurse:: Elsy Soto RN Recycle Coordinator/DIAL PAINTER: ST Asher Recycle Coordinator/DIAL PAINTER: ST Gladis Additional Personnel: : Aline Gibson CNA MATERNAL INFORMATION Delivery Anesthesia: Spinal Medications After Delivery: Pitocin Drip 20 Units/1000ml NSS Estimated Blood Loss (ml): 600 Maternal Complications: Other Other Maternal Complications: Severe Pre-E LABOR SUMMARY EDC: 12/21/2016 00:00 No. Babies in Womb: 1 Attempted: No STAGES OF LABOR Stage 3 hr: 0 Stage 3 min: 1 VAGINAL DELIVERY Episiotomy: None Laceration Extension: N/A Laceration Type: None Laceration Repair: Not Applicable Sponge Count Correct: N/A Sharps Count Correct: N/A CSECTION DELIVERY Primary Indication: Repeat Elective Secondary Indication: N/A CSection Urgency: Non-Scheduled CSection Incidence: Repeat Labor: No Labor Elective: Nonelective CSection Incision: Lower Uterine Transverse BABY A INFORMATION Delivery Date/Time: 11/09/2016 19:15 Method of Delivery: Born in Route : No : N/A Forceps: N/A Vacuum Extraction: N/A Shoulder Dystocia : Yes PRESENTATION/POSITION BABY A Presentation: Cephalic Cephalic Presentation: Vertex Breech Presentation: N/A PLACENTA INFORMATION BABY A Placenta Delivery Time : 11/09/2016 19:16 Placenta Method of Delivery: Manual Removal Placenta Status: Delivered SCORES BABY A Heart Rate 1 min: >100 bpm Resp Effort 1 min: Good Cry Reflex Irritability 1 min: Cough or Sneeze or Pulls Away Muscle Tone 1 min: Active Motion Color 1 min: Body [place], Extremities Blue SCORE 1 MIN: 9 Heart Rate 5 min: >100 bpm Resp Effort 5 min: Good Cry Reflex Irritability 5 min: Cough or Sneeze or Pulls Away Muscle Tone 5 min: Active Motion Color 5 min: Body [place], Extremities Blue SCORE 5 MIN: 9 INFANT INFORMATION BABY A Gestational Age at Delivery: 34.0 Gestational Status: Late - 34- 36.6 Weeks Infant Outcome : Liveborn Condition : Stable Sex: Male IDENTIFICATION BABY A Infant Verification Date/Time: 11/09/2016 19:26 ID Band Number: [id number] (Annotations: Data stored by [facility] on behalf of user) Mother's Name Verified: Yes Infant RN Verifying Infant: Lynn BILL Additional Verifying Personnel: US Jeni WEIGHT/LENGTH BABY A Birthweight (gm): 1660 Weight (lb): 3 Infant Weight (oz): 11 Length (in): 16.50 Infant Length (cm): 41.91 CORD INFORMATION BABY A No. Cord Vessels: 3 Nuchal Cord : N/A Cord Blood Taken: Yes-For Storage (Mom's Blood type +) Infant Suction: Mouth; Nose ASSESSMENT BABY A Infant Complications: None Physical Findings at Delivery: Within Normal Limits Infant Respirations: Appears Normal Skin to Skin: No Laser Engineer/ALS Called : No Infant Care By: JOY Bach Transferred To: NICU
[2016-11-10] MEDS: IBUPROFEN 800 MG TABLET PO SCH ×4 (00:25→09:54)
[2016-11-10] MEDS ORDERED: IBUPROFEN 800 MG TABLET ONE ×2 (00:27→06:00)
[2016-11-10 05:26] LABS: HEMATOCRIT 35.1 % (36.0-47.0); HEMOGLOBIN 11.9 g/dL (12.0-15.5); HGB HCT DIFFERENCE 0.6; MEAN CORPUSCULAR HEMOGLOBIN 30.8 pg (27.0-33.4); MEAN CORPUSCULAR VOLUME 90 fl (80-97); RED BLOOD COUNT 3.88 10^6/uL (3.72-5.28); RED CELL DISTRIBUTION WIDTH 14.1 % (11.5-14.0)
[2016-11-10] MEDS ORDERED: KETOROLAC TROMETHAMINE INJ/PF 30 MG/1 ML SDV ONE ×2 (06:01→13:30)
[2016-11-10] MEDS: KETOROLAC TROMETHAMINE INJ/PF 30 MG/1 ML SDV IV SCH ×2 (06:03→13:33)
[2016-11-10] MEDS ORDERED: LORAZEPAM INJ 2 MG/1 ML VIAL ONE (07:37)
[2016-11-10] MEDS ORDERED: LORAZEPAM INJ 2 MG/1 ML VIAL IV ONE (07:56)
[2016-11-10] MEDS: MAGNESIUM SULFATE 20 GM/500 ML RTUINJ IV PRN (08:17)
[2016-11-10] MEDS ORDERED: RINGERS SOLUTION,LACTATED 1,000 ML IV PRN (08:32)
[2016-11-10] MEDS: OXYCODONE-ACETAMINOPHEN 5-325 MG TABLET PO PRN ×2 (11:13→18:28)
[2016-11-10] MEDS ORDERED: OXYCODONE-ACETAMINOPHEN 5-325 MG TABLET ONE (11:14)
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
[2016-11-10] MEDS: PRENATAL VITAMIN W-O CA NO5/FE FUMARATE/FA CAPSULE PO SCH (16:31)
[2016-11-10] MEDS: DOCUSATE SODIUM 100 MG CAPSULE PO SCH ×2 (16:31→18:16)
[2016-11-11] MEDS: IBUPROFEN 800 MG TABLET PO SCH ×5 (00:38→23:51)
[2016-11-11] MEDS: OXYCODONE-ACETAMINOPHEN 5-325 MG TABLET PO PRN ×4 (00:42→22:13)
[2016-11-11] MEDS ORDERED: BENZOCAINE/MENTHOL AEROSOL SPRAY 56 ML TOP PRN (03:34)
[2016-11-11] MEDS: DIPHENHYDRAMINE HCL 25 MG CAPSULE PO PRN ×2 (03:47→17:59)
[2016-11-11] MEDS: PRENATAL VITAMIN W-O CA NO5/FE FUMARATE/FA CAPSULE PO SCH (09:24)
[2016-11-11] MEDS: DOCUSATE SODIUM 100 MG CAPSULE PO SCH ×2 (09:25→17:38)
--- NOTE | 2016-11-11 10:59 | PDOC PROGRESS REPORT ---
Subjective-OB Subjective: Post Delivery Day: 2 26 year old. Denies any needs at this time, lochia is stable, pain well controlled, voiding without difficulty. passing gas tolerating diet, denies s/ sx pre-e Physical Exam (OB) Vital Signs: Temp Pulse Resp BP Pulse Ox 98.1 F 72 14 127/89 H 100 11/11/16 08:00 11/11/16 08:00 11/11/16 08:00 11/11/16 08:00 11/11/16 08:00 Intake & Output 11/10/16 11/11/16 11/12/16 06:59 06:59 06:59 Intake Total 500 Output Total 450 Balance 50 Weight 67.45 kg - PIH/Pre-Eclampsia DTR's: 2 + Clonus: Negative Headache: Absent Epigastric Pain: No Visual Changes: No - Dressing Removed: No - medipore dressing D&I Closure Type: op site - Lochia Lochia Amount: Small 10-25 ml Lochia Color: Rubra/Red - Abdomen Description: Soft, Round Hernia Present: No Fundal Description: Firm, Midline Fundal Height: u/u - u/2 Objective-Diagnostic Laboratory: 11/10/16 05:05 11/09/16 17:16 Assessment and Plan(PN) - Assessment and Plan (1) Asthma Qualifiers: Asthma severity: moderate persistent Is this a current diagnosis for this admission?: Yes (2) Bipolar, anxiety, PTSD Is this a current diagnosis for this admission?: Yes Plan: d/c planning (3) delivery delivered Is this a current diagnosis for this admission?: Yes (4) Pre-eclampsia Qualifiers: Trimester: third trimester Is this a current diagnosis for this admission?: Yes Plan: monitor (5) delivery Is this a current diagnosis for this admission?: Yes Plan: routine pp care - Time Spent with Patient Time with patient: Less than 15 minutes Critical Time spent with patient: Less than 15 minutes Medications reviewed and adjusted accordingly: Yes - Disposition Anticipated Discharge: Home Within: within 24 hours
[2016-11-12] MEDS: IBUPROFEN 800 MG TABLET PO SCH ×2 (05:54→11:07)
[2016-11-12] MEDS: OXYCODONE-ACETAMINOPHEN 5-325 MG TABLET PO PRN (07:31)
--- NOTE | 2016-11-12 09:45 | PDOC DISCHARGE SUMMARY ---
Final Diagnosis Discharge Date: 11/12/16 - Final Diagnosis (1) Asthma Is this a current diagnosis for this admission?: Yes (2) Bipolar, anxiety, PTSD Is this a current diagnosis for this admission?: Yes (3) delivery delivered Is this a current diagnosis for this admission?: Yes (4) Pre-eclampsia Is this a current diagnosis for this admission?: Yes (5) delivery Is this a current diagnosis for this admission?: Yes Discharge Data - Discharge Medication Home Medications: Pnv No.122/Iron/Folic Acid [ Multi Tablet] 1 each PO DAILY 12/30/14 Albuterol Sulfate [Proair Respiclick] 1 puff IN PRN PRN 10/11/16 Montelukast Sodium [Singulair] 10 mg PO PRN PRN 10/11/16 Butalb/Acetaminophen/Caffeine [Fioricet (50-325-40 mg) Tablet] 1 tab PO Q8HP PRN #20 each 10/15/16 Ranitidine HCl [Zantac 150 mg Tablet] 150 mg PO BID #60 tablet 10/15/16 Docusate Sodium [Colace 100 mg Capsule] 100 mg PO BID #30 capsule 11/12/16 Ibuprofen [Motrin 800 mg Tablet] 800 mg PO Q6 #60 tablet 11/12/16 Nifedipine [Procardia XL 30 mg Tablet] 30 mg PO DAILY #30 tab.er.24 11/12/16 Oxycodone HCl/Acetaminophen [Percocet 5-325 mg Tablet] 2 tab PO Q4HP PRN #30 tablet 11/12/16 Gestational Age: 34 Reason(s) for Admission: Ceasarean Section-Repeat, PIH Procedures: NST Intrapartum Procedure(s): : Low Cervical, Transverse - Kevil Data Baby 1 Male at 1 minute: 9 at 5 minutes: 9 Weight: 1660 kg Home with Mother: Yes Complications: No - Diagnosis Test Laboratory: Temp Pulse Resp BP Pulse Ox 97.7 F 94 16 137/98 H 100 11/12/16 08:00 11/12/16 08:43 11/12/16 08:00 11/12/16 08:43 11/12/16 08:00 11/09/16 11/09/16 11/10/16 17:10 17:16 05:05 RBC 4.34 3.88 Hgb 13.4 11.9 L Hct 38.6 35.1 L Urine Opiates Screen NEGATIVE - Discharge information/Instructions Discharge Activity: Activity As Tolerated, No Lifting Over 10 Pounds, No Lifting /Push/Pulling, Pelvic Rest, No tub bath Discharge Diet: Regular Disposition: HOME, SELF-CARE Follow up with: [facility] in: 1, Weeks
[2016-11-12] MEDS: PRENATAL VITAMIN W-O CA NO5/FE FUMARATE/FA CAPSULE PO SCH (10:00)
[2016-11-12] MEDS: DOCUSATE SODIUM 100 MG CAPSULE PO SCH (10:00)
[2016-11-12 10:50] VITALS: BP 140/78
--- NOTE | 2016-11-23 16:40 | Admission Physical ---
Datetime Report Generated by CPN: 11/23/2016 16:39 CURRENT ADMISSION Hx Assessment: The History has been Reviewed and is Current Chief Complaint: Signs/Symptoms Gestational HTN Chief Complaint: Signs/Symptoms Gestational HTN Chief Complaint Other: severe pre-eclampsia Indication for Induction: Not Applicable Indication for Induction: Not Applicable Admit Plan: Admit to Unit; Initiate Section Protocol Admit Plan: Observation/Evaluation ALLERGIES Medication Allergies: Sulfa (Sulfonamide Antibiotics)/MO/itching (11/09/2016); aloe/MO/rash (11/09/2016); aspirin/SV/dizziness/nause (11/09/2016) PHYSICAL EXAM General: Normal General: Normal HEENT: Normal HEENT: Normal Neurologic: Normal Neurologic: Normal Thyroid: Normal Thyroid: Deferred Heart: Normal Heart: Normal Lungs: Normal Lungs: Normal Breast: Normal Breast: Deferred Back: Normal Back: Normal Abdomen: Normal Abdomen: Normal Genitourinary Exam: Normal Genitourinary Exam: Normal Extremities: Normal Extremities: Normal DTRs: Normal DTRs: Normal Pelvic Type: Adequate Pelvic Type: Adequate Vital Signs: Reviewed Vital Signs: Reviewed Details Vital Signs: severe range bp MEMBRANES Membranes: Intact Membranes: Intact FETUS A EGA: 34.0 EGA: 33.4 EGA: 30.1 Monitoring: External US Monitoring: External US FHR- Baseline: 135 FHR- Baseline: 135 Variability: Moderate 6-25bpm Variability: Moderate 6-25bpm Accelerations: 10X10 Accelerations: 10X10 Decelerations: None Decelerations: None FHR Category: Category II FHR Category: Category I Estimated Weight (gm): 3000 Presentation: Vertex Admit Comment: Admit to L _ D sent in from office for severe range bp's lab work pending c/w dr. long will precede with repeat c/s for pre-eclampsia see records, needs d/c planning extensive psych history. magnesium after delivery Admit Comment: Will admit for serial BP's, serial PIH labs and 24hr Urine collection. Will proceed with Repeat C/S if pt develops severe features INFORMED CONSENT Assignment: Gely Long MD Signature: with User ID: [email or web address] Signature: with User ID: Dae : with User ID: [email or web address] : with User ID: [email or web address]
--- NOTE | 2016-12-18 11:26 | OPERATIVE REPORT E ---
Operative Report NAME: BAKARI TOMAS : 1990 AGE: 26Y DATE OF SURGERY: 11/09/2016 ROOM: 227 PREOPERATIVE DIAGNOSES: 1. Intrauterine at 34 weeks and 3 days. 2. Severe preeclampsia with severe range pressures. 3. Previous . POSTOPERATIVE DIAGNOSES: 1. Intrauterine at 34 weeks and 3 days. 2. Severe preeclampsia with severe range pressures. 3. Previous . OPERATION: Low transverse hysterotomy section. SURGEON: STEVEN NGO M.D. ANESTHESIA: Dr. Monte with a spinal. ESTIMATED BLOOD LOSS: 600 mL. PATHOLOGY: Placenta. FINDINGS: Male infant in cephalic presentation with Apgars of 9 and 9 consistent with a 34-week gestation. PROCEDURE: The patient was taken to the operating room, prepared and draped in a normal sterile fashion in a supine position with a leftward tilt. A transverse skin incision was made with a scalpel following the patient's previous . This was carried through to the underlying layer of fascia with the same scalpel. The fascia was excised and extended laterally with José Antonio. The fascia was then dissected sharply from the rectus muscle using José Antonio, and the rectus muscle was divided. The peritoneal cavity was entered bluntly with good visualization of the uterus and the bladder. The bladder blade was inserted and the hysterotomy was nicked in the center and extended laterally with surgeon finger fracture. The was then delivered atraumatically. The nose and mouth were suctioned with a suction bulb and the cord was clamped and cut, and handed off to waiting pediatricians. The cord blood was collected and the placenta was removed manually. The uterus was exteriorized and cleared of clots and debris. The hysterotomy was closed with 0 Monocryl in a running locked fashion. A second layer of the same suture was used to imbricate to ensure hemostasis. The uterus was then returned to the abdomen and the peritoneal cavity was once again cleared of clots and debris. The rectus muscle and peritoneum were reapproximated with a mattress stitch of 2-0 chromic. The fascia was closed with 0 Vicryl. The subcutaneous layer was closed with plain cat gut and the skin was closed with 4-0 Vicryl. The patient tolerated the procedure well. Sponge, lap, and needle counts were correct x2. The patient was taken to recovery in stable condition and placed on magnesium sulfate for 24 hours . DICTATING PHYSICIAN: STEVEN NGO M.D. [id number] PHY#: [id number] ID: [id number] JOB#: [id number] ACCT: [id number] cc:STEVEN NGO M.D. >
== END 2016-11-12 11:54 | disposition home or self-care (01) | DRG 766 ==
LOC: LC 16:46 → LR 17:07 → 2S 11-10 14:00
PROVIDERS: ADMIT Obstetrics & Gynecology; ATTEND Obstetrics & Gynecology
PROC: 10D00Z1 Extraction of Products of Conception, Low, Open Approach (ICD-10-PCS; principal; 2016-11-09)
DX: O14.14 Severe pre-eclampsia complicating childbirth (principal); Z37.0 Single live birth; O13.4 Gestational [pregnancy-induced] hypertension without significant proteinuria, complicating childbirth; O60.14X0 Preterm labor third trimester with preterm delivery third trimester, not applicable or unspecified; O34.211 Maternal care for low transverse scar from previous cesarean delivery; O66.0 Obstructed labor due to shoulder dystocia; O99.334 Smoking (tobacco) complicating childbirth; O99.344 Other mental disorders complicating childbirth; N85.8 Other specified noninflammatory disorders of uterus; F31.9 Bipolar disorder, unspecified; F41.9 Anxiety disorder, unspecified; J45.998 Other asthma; F17.210 Nicotine dependence, cigarettes, uncomplicated; Z3A.34 34 weeks gestation of pregnancy
CPT/HCPCS: 1961; 36415; 80053; 80307; 81001; 82570; 83615; 84156; 84550; 85025; 85027; 86592; 86850; 86900; 86901; 94799; J0131; J0690; J1200; J1885; J2060; J2250; J2270; J2300; J2405; J2590; J3010; J3475; J3490

== ENCOUNTER 2019-10-30 19:01 | Emergency (ER) | payer MEDICAID ==
[2019-10-30] MEDS ORDERED: NORMAL SALINE 1000 ML 1,000 ML IV ONE (21:51)
[2019-10-30] MEDS ORDERED: KETOROLAC TROMETHAMINE INJ/PF 30 MG/1 ML SDV IV ONE (21:51)
[2019-10-30] MEDS ORDERED: ONDANSETRON HCL INJ/PF 4 MG/2 ML SDV IV ONE (21:51)
[2019-10-30] MEDS ORDERED: DIPHENHYDRAMINE HCL 50 MG/ML VIAL IV ONE (21:51)
--- NOTE | 2019-10-30 21:55 | ER Document Report ---
ED GI/ - General Chief Complaint: Urinary Problem Stated Complaint: URINARY ISSUE Time Seen by Provider: 10/30/19 21:30 Primary Care Provider: ARI HOOKER DO [Primary Care Provider] - 11/03/19 Notes: Patient is a 29-year-old female that comes emergency department for chief complaint of 2 days of worsening dysuria and now she has flank pain, chills, and she vomited all upon arrival to the emergency department. She states she has had 2 kidney infections in the past and this feels the same. She has bilateral flank pain but slightly worse on the left. She denies vaginal discharge or bleeding, concerns for STD. Past medical history of 2 C-sections, she denies any daily medications. She has a Mirena in place. Patient also states that after washing her hands in the bathroom she started breaking out in an itchy rash on her left forearm. She denies difficulty swallowing or breathing, facial/oral/throat swelling, or any other complaints. TRAVEL OUTSIDE OF THE [place] IN LAST 30 DAYS: No - Related Data Allergies/Adverse Reactions: aspirin [Aspirin] Allergy (Severe, Verified 11/09/16 17:04) dizziness/nausea/trouble breathing aloe [Aloe] Allergy (Intermediate, Verified 11/09/16 17:04) rash Sulfa (Sulfonamide Antibiotics) Allergy (Intermediate, Verified 11/09/16 17:04) itching Past Medical History - General Information source: Patient - Social History Smoking Status: Current Every Day Smoker Frequency of alcohol use: Occasional Drug Abuse: None Lives with: Spouse/Significant other Family History: Reviewed & Not Pertinent Pulmonary Medical History: Reports: Hx Asthma Psychiatric Medical History: Reports: Hx Bipolar Disorder, Hx Depression - Immunizations Hx Diphtheria, Pertussis, Tetanus Vaccination: Yes Review of Systems - Review of Systems Constitutional: See HPI EENT: No symptoms reported Cardiovascular: No symptoms reported Respiratory: No symptoms reported Gastrointestinal: See HPI Genitourinary: See HPI Female Genitourinary: No symptoms reported Musculoskeletal: No symptoms reported Skin: See HPI Hematologic/Lymphatic: No symptoms reported Neurological/Psychological: No symptoms reported Physical Exam - Vital signs Vitals: Pulse Resp BP Pulse Ox 122 H 20 142/72 H 100 10/30/19 21:08 10/30/19 21:08 10/30/19 21:08 08/20/20 21:08 - Notes Notes: GENERAL: Alert, interacts well. No acute distress. Patient is very slim and small HEAD: Normocephalic, atraumatic. EYES: Pupils equal, round, and reactive to light. Extraocular movements intact. ENT: Oral mucosa moist, tongue midline. Oropharynx unremarkable. Airway patent. NECK: Full range of motion. Supple. Trachea midline. No lymphadenopathy. LUNGS: Clear to auscultation bilaterally, no wheezes, rales, or rhonchi. No respiratory distress. Non-tender chest wall. HEART: Tachycardic, normal rhythm, no murmur ABDOMEN: Soft, non-tender. Non-distended. Bowel sounds present in all 4 quadrants. EXTREMITIES: Moves all 4 extremities spontaneously. No edema, normal radial and dorsalis pedis pulses bilaterally. No cyanosis. BACK: Mild bilateral CVA tenderness. No cervical, thoracic, lumbar midline tenderness. No saddle anesthesia, normal distal neurovascular exam. Moves all extremities in full range of motion. NEUROLOGICAL: Alert and oriented x3. Normal speech. Cranial nerves II through XII grossly intact. Strength 5/5 in all extremities. PSYCH: Normal affect, normal mood. SKIN: Faint urticaria over the left lateral forearm, otherwise unremarkable Course - Re-evaluation Re-evalutation: Patient with flank pain in the CVA area bilaterally, abdomen is soft and benign, patient is tachycardic but nontoxic in appearance. She is smiling, talkative, well-appearing. We will treat fever, give fluids, reevaluate. Work-up pending. CBC shows mild leukocytosis with 2% bands, chemistry nonspecific, urinalysis shows obvious infection with positive nitrates, white blood cells, white blood cell clumps. Presentation is consistent with pyelonephritis, symptoms have been gradually worsening. There was no sudden onset severe pain, pain is bilateral, patient has had dysuria, I have a low suspicion of infected ureterolithiasis at this point and I feel strongly this is pyelonephritis only. Cultures are pending. Patient has received antibiotics. I reevaluated the patient, she is smiling, well-appearing, heart rate is 104 on recheck, I discussed options with patient, decision was made to have cultures pending, start antibiotics at home, have her follow-up with primary care, provided with work release, and have her return if she worsens in any way. I discussed this at length. Patient states appreciation and agreement. Note: Patient's small rash on the left forearm faded before she even got the Benadryl and did not return. I did recommend that she take an [id number] antihistamine for the next week, patient states agreement with this plan. - Vital Signs Vital signs: Temp Pulse Resp BP Pulse Ox 99.6 F 128 H 20 123/78 100 10/31/19 03:46 10/31/19 03:46 10/31/19 03:46 10/31/19 03:46 10/31/19 03:46 - Laboratory Result Diagrams: 10/30/19 23:20 10/30/19 23:20 Laboratory results interpreted by me: 10/30/19 10/30/19 10/30/19 23:20 23:20 23:20 WBC 11.8 H Plt Count 124 L Seg Neuts % (Manual) 88 H Band Neutrophils % 2 L Lymphocytes % (Manual) 5 L Abs Neuts (Manual) 10.6 H Sodium 136.1 L Total Bilirubin 1.7 H Urine Protein 100 H Urine Ketones TRACE H Urine Blood MODERATE H Urine Nitrite POSITIVE H Ur Leukocyte Esterase LARGE H Discharge - Discharge Clinical Impression: Flank pain, Pyelonephritis Fever Qualifiers: Fever type: unspecified Qualified Code(s): R50.9 - Fever, unspecified Condition: Stable Disposition: HOME, SELF-CARE Additional Instructions: Your evaluation is consistent with pyelonephritis (a kidney infection). You have been started on antibiotics, complete antibiotics as prescribed. Take the pain medication and/or Tylenol/ibuprofen if needed, take Zofran if needed for nausea, drink plenty of fluids and rest. Follow-up with primary care provider. Return if you worsen including severe worsening pain, spiking fevers, vomiting, or any other concerning or worsening symptoms. Prescriptions: Cephalexin Monohydrate [Keflex 500 mg Capsule] 500 mg PO QID 10 Days #40 capsule Ondansetron [Zofran Odt 4 mg Tablet] 1 - 2 tab PO Q4H PRN #15 tab.rapdis PRN Reason: For Nausea/Vomiting Referrals: ARI HOOKER DO [Primary Care Provider] - 11/03/19
[2019-10-30] MEDS ORDERED: ACETAMINOPHEN 325 MG TABLET PO ONE (22:13)
[2019-10-30 23:42] LABS: APPEARANCE,URINE CLOUDY; BILIRUBIN,URINE NEGATIVE (NEGATIVE); COLOR,URINE YELLOW; GLUCOSE, URINE NEGATIVE (NEGATIVE); KETONES,URINE TRACE mg/dL (NEGATIVE); LEUKOCYTE ESTERASE,URINE LARGE (NEGATIVE); NITRITE,URINE POSITIVE (NEGATIVE); PROTEIN,URINE 100 mg/dL (NEGATIVE); URINE SPECIFIC GRAVITY 1.013; UROBILINOGEN,URINE NEGATIVE mg/dL (<2.0)
[2019-10-30 23:51] LABS: ALBUMIN 4.8 g/dL (3.5-5.0); ALKALINE PHOSPHATASE 78 U/L (38-126); ANION GAP 10 (5-19); ASPARTATE AMINO TRANSFERASE 23 U/L (14-36); BILIRUBIN,DIRECT 0.1 mg/dL (0.0-0.4); BILIRUBIN,TOTAL 1.7 mg/dL (0.2-1.3); BLOOD UREA NITROGEN 9 mg/dL (7-20); CALCIUM 9.6 mg/dL (8.4-10.2); CARBON DIOXIDE 23 mmol/L (22-30); CHLORIDE 103 mmol/L (98-107); GLUCOSE 101 mg/dL (75-110); POTASSIUM 4.1 mmol/L (3.6-5.0); TOTAL PROTEIN 7.9 g/dL (6.3-8.2)
[2019-10-31] MEDS ORDERED: CEFTRIAXONE 1 GM/D5W RTU 1 GM/50 ML RTUPB IV ONE ×2 (00:02→03:00)
[2019-10-31 00:10] LABS: HEMATOCRIT 44.8 % (36.0-47.0); HEMOGLOBIN 15.4 g/dL (12.0-15.5); MEAN CORPUSCULAR HEMOGLOBIN 31.9 pg (27.0-33.4); MEAN CORPUSCULAR HGB CONC 34.4 g/dL (32.0-36.0); MEAN CORPUSCULAR VOLUME 93 fl (80-97); PLATELET COUNT 124 10^3/uL (150-450); RED BLOOD COUNT 4.83 10^6/uL (3.72-5.28); RED CELL DISTRIBUTION WIDTH 12.8 % (11.5-14.0); WHITE BLOOD COUNT 11.8 10^3/uL (4.0-10.5)
[2019-10-31 00:15] LABS: ABSOLUTE LYMPHOCYTES# (MANUAL) 0.6 10^3/uL (0.5-4.7); ABSOLUTE MONOCYTES # (MANUAL) 0.6 10^3/uL (0.1-1.4); BAND NEUTROPHILS % (MANUAL) 2 % (3-5); BASOPHILS % (MANUAL) 0 % (0-2); EOSINOPHILS % (MANUAL) 0 % (0-6); LYMPHOCYTES % (MANUAL) 5 % (13-45); MONOCYTES % (MANUAL) 5 % (3-13); OVALOCYTES SLIGHT; POIKILOCYTOSIS SLIGHT; SEGMENTED NEUTROPHILS % (MAN) 88 % (42-78); TOTAL CELLS COUNTED 100; TOXIC GRANULATION SLIGHT
[2019-10-31 00:16] LABS: PLATELET COMMENT DECREASED
[2019-10-31] MEDS ORDERED: HYDROCODONE/ACETAMINOPHEN 5-325 MG (6 TAB/ER DISP) PO PRN (03:01)
[2019-10-31] MEDS ORDERED: ONDANSETRON ODT 4 MG TAB (6 TAB/ER DISP) PO PRN (03:01)
[2019-10-31] MEDS ORDERED: IBUPROFEN 600 MG TABLET PO ONE (03:48)
[2019-10-31 03:50] VITALS: BP 123/78
== END 2019-10-31 04:18 | disposition home or self-care (01) ==
LOC: ER 19:01
DX: N12 Tubulo-interstitial nephritis, not specified as acute or chronic (principal); R10.9 Unspecified abdominal pain; R50.9 Fever, unspecified; R39.198 Other difficulties with micturition; R30.0 Dysuria; R11.10 Vomiting, unspecified; R21 Rash and other nonspecific skin eruption; Z88.8 Allergy status to other drugs, medicaments and biological substances; Z88.2 Allergy status to sulfonamides; F17.200 Nicotine dependence, unspecified, uncomplicated; J45.909 Unspecified asthma, uncomplicated
CPT/HCPCS: 99284; 96361; 96375; 96365; 36415; 87040; 87086; 83690; 85025; 81025; 87088; 80053; 81001; 87186; J3490 ×2; J1200; J1885; J2405; J7030; J0696